=== PATIENT | male | born 1985 | race Caucasian/White ===

== ENCOUNTER 2021-04-19 11:46 | Emergency (ER) | payer OTHER ==
[~2021-04-19] VITALS: Ht 180.3 cm; Wt 73.0 kg
[2021-04-19] MEDS ORDERED: TETANUS, DIPHTHERIA, PERTUSSIS VAC/PF 0.5ML (>10YR OLD) IM ONE (12:00)
[2021-04-19] MEDS ORDERED: IBUPROFEN 400MG TABLET PO ONE (12:00)
[2021-04-19] MEDS ORDERED: BACITRACIN ZINC OINT UDPKT TOP ONE (12:00)
[2021-04-19] MEDS ORDERED: ACETAMINOPHEN 325MG TABLET PO ONE (12:00)
[2021-04-19] MEDS ORDERED: VANCOMYCIN 1 G PREMIX 200 ML IV SCH (14:15)
[2021-04-19] MEDS ORDERED: SODIUM CHLORIDE 0.9% 1,000 ML IV ONE ×2 (14:15→15:30)
[2021-04-19] MEDS ORDERED: PIPERACILLIN/TAZ 3.375G PREMIX 50 ML IV ONE (15:30)
[2021-04-19 16:08] VITALS: BP 126/75
== END 2021-04-19 16:13 | disposition left against medical advice (07) ==
LOC: ER 11:46
DX: L03.113 Cellulitis of right upper limb (principal); Z98.890 Other specified postprocedural states
CPT/HCPCS: 73130; 99283; J7030

== ENCOUNTER 2022-05-04 04:35 | Emergency (ER) | payer MEDICAID, OTHER ==
[~2022-05-04] VITALS: Ht 180.3 cm; Wt 70.0 kg
[2022-05-04 05:09] VITALS: BP 142/94
[2022-05-04] MEDS ORDERED: T3 PO (06:57)
== END 2022-05-04 08:13 | disposition home or self-care (01) ==
LOC: ER 04:35
DX: A63.0 Anogenital (venereal) warts (principal); Z21 Asymptomatic human immunodeficiency virus [HIV] infection status
CPT/HCPCS: 99281

== ENCOUNTER 2023-06-14 01:40 | Emergency (ER) | payer MEDICAID, OTHER ==
[~2023-06-14] VITALS: Ht 180.3 cm; Wt 73.0 kg
[~2023-06-14 01:40] MED LIST: T3 PO
[2023-06-14 02:55] VITALS: BP 130/95; PULSE 111; RESP 16; TEMP 98.2; O2SAT 100
[2023-06-14] MEDS ORDERED: NAPR500T7 MT (05:44)
[2023-06-14] MEDS ORDERED: CEPH500C2 MT (05:44)
== END 2023-06-14 05:53 | disposition home or self-care (01) ==
LOC: ER 01:40
DX: S80.862A Insect bite (nonvenomous), left lower leg, initial encounter (principal); L03.116 Cellulitis of left lower limb; Z98.890 Other specified postprocedural states; W57.XXXA Bitten or stung by nonvenomous insect and other nonvenomous arthropods, initial encounter; Y93.89 Activity, other specified; Y92.89 Other specified places as the place of occurrence of the external cause; Y99.8 Other external cause status
CPT/HCPCS: 99283